=== PATIENT | female | born 1970 | race Caucasian/White ===

== ENCOUNTER → 2025-05-13 | Day surgery (SDC) | payer BC ==
[~2025-05-13] VITALS: Ht 165.1 cm; Wt 131.5 kg
[~2025-05-13] MED LIST: ACCU-CHEK COMFORT CURVE STRIP VI ONE; ALBUAER3 IN; ALPR0.5T7 PO; ALPRAZolam 0.5 MG TAB PO ONE; ASPI81CH59 PO; BECL80AE11 IN; BUPR200T2 PO; CHOL25CH3 PO; HEPARIN SODIUM (PORCINE) 5000 UNITS/ML 1ML VIAL ONE; HYDR-4902 PO; HYDR25TA4 PO; HYDROmorphone HCL 2 MG/ML VL/or syr IV PRN; KETAMINE 50mg/ML 1ml syringe ONE; KETOROLAC TROMETH 30 MG/ML 1ML VIAL IV ONE; LIDOCAINE 1% HCL (LOCAL ANESTH.) INJ 20ML MDV ONE; LIDOCAINE 1% INJ PF 5ML AMP ONE; LIDOCAINE HCL 2% TOP JELLY 5ML TOP ONE; LISI30TA8 PO; METOCLOPRAMIDE HCL 5MG/ml INJ 2ml VIAL IV ONE; MIDAZOLAM HCL 2MG/2ML 2ml VIAL (1mg/ml) ONE; MONT-8 PO; MORPHINE SULFATE 4 MG/ML SYR/VIAL IV PRN; MORPHINE SULFATE INJ 2 MG/ml SYRG IV PRN; MULT-654 OR; ONDANSETRON HCL 4 MG/2 ML VIAL ONE; PANT40TA2 PO; POTA1080 PO; PROB1CHW27 PO; PROPOFOL 10 MG/ML 20 ML IV ONE; ROCURONIUM 10MG/ML 10ML VIAL IV ONE; SODIUM CHLORIDE LOCK 10 ML ONE; SUCCINYLCHOLINE CHLORIDE 20 MG/ML 10ML VIAL IV ONE; TRIA0.02 TOP; ceFAZolin 2 GM/D5W50ml 50 ML IV ONE; fentaNYL CITRATE 100 MCG/2 ML VL ONE
[2025-05-13] MEDS: BUPIVACAINE 0.5% MPF INJ 30ML SDV IJ ONE (08:39)
[2025-05-13] MEDS: HYDROmorphone HCL 2 MG/ML VL/or syr ONE (09:10)
[2025-05-13] MEDS: ALPRAZolam 0.5 MG TAB PO ONE (09:30)
[2025-05-13 09:55] VITALS: BP 130/68; PULSE 56; RESP 13; O2SAT 99
--- NOTE | 2025-05-13 11:45 | DVHOP ---
DATE OF SURGERY: 05/13/2025 PREOPERATIVE DIAGNOSIS: Symptomatic cholelithiasis. POSTOPERATIVE DIAGNOSIS: Symptomatic cholelithiasis. PROCEDURE: Laparoscopic lysis of adhesions and laparoscopic cholecystectomy. SURGEON: Erik Martinez MD RUBBER COMPOUNDER: None. ANESTHESIOLOGIST: Dr. Adair. ANESTHESIA: General by means of endotracheal intubation. INTRAOPERATIVE FINDINGS: * Adhesions involving the omentum against the falciform ligament. * Severe morbid obesity and visceral adipose tissue. * Liver in the cephalad aspect of the costal margin. * Cholelithiasis. No evidence of acute cholecystitis. ESTIMATED BLOOD LOSS: Minimal. INTRAVENOUS FLUIDS: Per anesthesia charting. URINE OUTPUT: Not recorded given Wall catheter was not inserted. DRAINS: None. IMPLANTS: Endoclips. SPECIMENS: Gallbladder. COMPLICATIONS: None other than difficult procedure secondary to the patient's morbid obesity, adding significant complexity as well as time to an otherwise routine procedure. Procedure well tolerated and transferred to recovery room in stable condition. INDICATIONS FOR PROCEDURE: The patient is a 54-year-old female with recurrent abdominal pain secondary to cholelithiasis. Based on the above the patient's information, she was recommended to undergo laparoscopic, possible open cholecystectomy. The procedure, risks, and benefits were explained in a detailed and extensive fashion. All questions were answered. She understood and agreed to proceed. DESCRIPTION OF PROCEDURE: The patient was taken to the operating room. She was placed in a dorsal decubitus position on the operating room table. Once adequate anesthesia was achieved, the abdomen was widely prepped and draped in the usual sterile fashion. My attention was directed towards the periumbilical region where local anesthesia consisting of 1% lidocaine and 0.5% Marcaine was infiltrated. The abdominal wall was retracted anteriorly and a 5 mm incision was made in the superior-internal aspect of the umbilicus. The Veress needle was inserted into the abdominal cavity. Pneumoperitoneum of 15 mmHg was achieved. The Veress needle was exchanged for a 5 mm trocar and a 5 mm, 30-degree laparoscope was inserted into the abdominal cavity. A thorough survey of the abdominal cavity did not reveal any evidence of injury or bleeding upon entry. The liver was noted to be retracted cephalad in the subdiaphragmatic thoracoabdominal cavity. The patient had significant visceral adipose tissue in the abdominal cavity. There were adhesions involving the omentum against the falciform ligament. My attention was directed towards right upper quadrant region where 5 mm trocars x2 were placed. At the epigastric region, another 5 mm trocar was placed. All trocars were placed with preemptive local anesthesia as well as under direct laparoscopic visualization. At this time, the gallbladder was retracted superiorly and anteriorly. At this time, the adhesions involving the omentum against the falciform ligament was taken down with the EndoShears without injury or bleeding. The gallbladder was retracted freely anteriorly and laterally, adequately exposing the structures within the triangle of Calot. The cystic duct was identified. It was carefully and circumferentially dissected with a [place] dissector. A critical view was obtained confirming that the structure dissected was the cystic duct. Two Endoclips were placed distally, paying careful attention not to impinge on the common bile duct. One was placed proximally and the cystic duct was divided between the clips with Endoshears. The cystic artery was identified and circumferentially dissected. Two Endoclips were placed proximally and one was placed distally and then divided between clips with Endoshears. The gallbladder was dissected from the liver bed using the electrocautery device. It should be noted that during the retraction process, the gallbladder was friable and a small cholecystotomy was made in the distal aspect of the gallbladder. The fluid had been immediately evacuated. There was a small amount of stone also spilled, which were immediately retrieved. Control was achieved afterwards in order to avoid further spillage. Once the gallbladder was dissected from the liver bed, it was placed in an EndoCatch bag and extracted via the epigastric trocar site. The 5 mm trocar was retrieved and at this time, my attention was directed towards the cystic artery and cystic duct stump. There was no evidence of active bleeding or bile leak. The area was copiously irrigated with sterile saline solution. The fluid was evacuated. There was no evidence of any injury, bleeding, or bile leak. The laparoscopic trocars were removed under direct laparoscopic visualization without bleeding from any trocar sites. The remaining pneumoperitoneum was completely evacuated. Any laparoscopic equipment was removed. The wounds were washed and dried and the skin was closed with 4-0 Monocryl in a subcuticular fashion. A sterile glue was applied. The patient tolerated well the procedure. There were no complications other than the difficult procedure secondary to her morbid obesity state, adding complexity as well as time to an otherwise routine procedure. She was successfully extubated in the operating room and transferred to recovery room in a stable condition. MD MERLIN Escalona/ELYSSA/ZEYAD TID: [id number] RECEIPT: [id number] MTDD
== END | disposition home or self-care (01) ==
LOC: SUR 06:10
DX: K80.10 Calculus of gallbladder with chronic cholecystitis without obstruction (principal); E66.01 Morbid (severe) obesity due to excess calories; K66.0 Peritoneal adhesions (postprocedural) (postinfection); J45.909 Unspecified asthma, uncomplicated; I10 Essential (primary) hypertension; M19.90 Unspecified osteoarthritis, unspecified site; G47.30 Sleep apnea, unspecified; Z86.73 Personal history of transient ischemic attack (TIA), and cerebral infarction without residual deficits; Z98.890 Other specified postprocedural states; Z79.899 Other long term (current) drug therapy
CPT/HCPCS: 47562; 86850; 86900; 86901; 88304; J0330; J0690; J1100; J1171; J1644; J2003; J2250; J2405; J2704; J3010; J3490